=== PATIENT | male | born 1995 | race Caucasian/White ===

== ENCOUNTER 2024-07-06 09:13 | Inpatient (IN) | payer OTHER ==
[2024-07-06] MEDS ORDERED: Sodium Chloride 0.9% 10 ML Syringe FLUSH PRN (10:08)
[2024-07-06] MEDS: Sodium Chloride 0.9% 1,000 ML IV ONE ×2 (10:13→11:28)
[2024-07-06 10:24] LABS: BASOPHILS PERCENT AUTO 0.6 % (0.3-3.8); EOSINOPHILS ABSOLUTE AUTO 0.1 x10-3/uL (0.0-0.6); EOSINOPHILS PERCENT AUTO 1.4 % (0.1-6.8); HEMATOCRIT 38.6 % (38.3-50.1); HEMOGLOBIN 12.6 g/dL (12.9-17.7); LYMPHOCYTES ABSOLUTE AUTO 1.8 x10-3/uL (0.5-4.5); LYMPHOCYTES PERCENT AUTO 25.8 % (15.8-45.3); MEAN CORPUSCULAR HEMOGLOBIN 21.7 pg (27.0-33.3); MEAN CORPUSCULAR HGB CONC 32.6 g/dL (28.7-35.3); MEAN CORPUSCULAR VOLUME 66.6 fL (80.8-98.7); MEAN PLATELET VOLUME 7.7 fL (6.7-11.0); MONOCYTES ABSOLUTE AUTO 0.5 x10-3/uL (0.0-1.2); MONOCYTES PERCENT AUTO 6.7 % (5.5-15.2); NEUTROPHILS ABSOLUTE AUTO 4.6 x10-3/uL (1.7-6.9); NEUTROPHILS PERCENT AUTO 65.5 % (40.3-71.8); PLATELET COUNT,PLT 355 x10(3)uL (117-477); RED CELL DISTRIBUTION WIDTH 14.3 % (12.4-15.0); WHITE BLOOD CELL COUNT,WBC 7.1 x10-3/uL (3.2-10.1)
[2024-07-06 10:31] LABS: BASE EXCESS VENOUS,POC -10 mmol/L (-2 - 3+); PCO2 VENOUS,POC 34 mmHg (41-51); PH VENOUS,POC 7.28 pH Units (7.32-7.43)
[2024-07-06 10:36] LABS: A/G RATIO 1.3; ALANINE AMINOTRANSFERASE,ALT 50 U/L (12-36); ALBUMIN 4.7 g/dL (3.5-5.2); ALKALINE PHOSPHATASE 113 IU/L (56-112); ASPARTATE AMNIOTRANSFERASE,AST 9 IU/L (5-25); BILIRUBIN TOTAL 0.8 mg/dL (0.1-1.3); BLOOD UREA NITROGEN,BUN 16 mg/dL (7-18); BUN/CREATININE RATIO 12.3 (9-20); CALCIUM 9.4 mg/dL (8.6-10.2); CARBON DIOXIDE,CO2 17 mmol/L (21-32); CHLORIDE,CL 96 mmol/L (100-110); CREATININE 1.3 mg/dL (0.70-1.30); EST CRCL DRUG DOSING (CG) 83.91 mL/min; ESTIMATED GFR 77 mL/min (>60); POTASSIUM,K 3.9 mmol/L (3.5-5.3); PROTEIN TOTAL,TP 8.2 g/dL (6.0-8.0); SODIUM,NA 136 mmol/L (135-145)
[2024-07-06 10:37] LABS: GLUCOSE RANDOM 470 mg/dL (80-116)
[2024-07-06 11:06] LABS: BILIRUBIN,URINE NEGATIVE (NEGATIVE); GLUCOSE,URINE >1000 mg/dL (NORMAL); KETONES,URINE 150 mg/dL (NEGATIVE); LEUKOCYTE ESTERASE,URINE NEGATIVE (NEGATIVE); NITRITE,URINE NEGATIVE (NEGATIVE); OCCULT BLOOD,URINE NEGATIVE (NEGATIVE); PROTEIN,URINE NEGATIVE (NEGATIVE); UROBILINOGEN,URINE NORMAL (NEGATIVE)
[2024-07-06 11:07] LABS: APPEARANCE,URINE CLEAR (CLEAR); COLOR,URINE YELLOW (YELLOW)
[2024-07-06] MEDS ORDERED: Glucagon,Human Recombinant 1 MG Vial IM PRN ×5 (11:23→15:12)
[2024-07-06] MEDS ORDERED: 50% Dextrose in Water 50 ML Syringe IVPUSH PRN ×5 (11:23→15:12)
[2024-07-06] MEDS: Insulin Regular, Human 100 Units/ML 10 ML Vial IV ONE (11:29)
[2024-07-06] MEDS ORDERED: Polyethylene Glycol 3350 Powder 17 GM Packet PO PRN (11:54)
[2024-07-06] MEDS ORDERED: Ibuprofen 400 MG Tab PO PRN (11:54)
[2024-07-06] MEDS ORDERED: Ondansetron 4 MG Tab.DIS PO PRN (11:54)
[2024-07-06] MEDS ORDERED: Acetaminophen 325 MG Tab PO PRN (11:54)
[2024-07-06 12:37] LABS: HEMOGLOBIN A1C 11.4 % (<5.7)
[2024-07-06] MEDS: NS + KCl 20mEq/L 1,000 ML IV SCH (12:50)
[2024-07-06 13:16] LABS: BLOOD UREA NITROGEN,BUN 13 mg/dL (7-18); CALCIUM 8.7 mg/dL (8.6-10.2); CARBON DIOXIDE,CO2 22 mmol/L (21-32); CHLORIDE,CL 105 mmol/L (100-110); CREATININE 1.3 mg/dL (0.70-1.30); EST CRCL DRUG DOSING (CG) 83.91 mL/min; ESTIMATED GFR 77 mL/min (>60); GLUCOSE RANDOM 178 mg/dL (80-116); POTASSIUM,K 3.3 mmol/L (3.5-5.3); SODIUM,NA 143 mmol/L (135-145)
[2024-07-06] MEDS: Insulin Lispro 100 Unit/ML 3 ML KwikPen SUBCUT STA (13:41)
[2024-07-06] MEDS: Insulin Glargine,Human Rec. Analog 100 Units/ML 3 ML Pen SUBCUT SCH (13:42)
[2024-07-06] MEDS: Potassium Chloride 20 MEQ Tab.ER PO ONE (15:06)
[2024-07-06 17:27] LABS: BLOOD UREA NITROGEN,BUN 10 mg/dL (7-18); BUN/CREATININE RATIO 9.1 (9-20); CALCIUM 8.1 mg/dL (8.6-10.2); CARBON DIOXIDE,CO2 20 mmol/L (21-32); CHLORIDE,CL 103 mmol/L (100-110); CREATININE 1.1 mg/dL (0.70-1.30); EST CRCL DRUG DOSING (CG) 98.78 mL/min; ESTIMATED GFR 94 mL/min (>60); GLUCOSE RANDOM 250 mg/dL (80-116); POTASSIUM,K 3.6 mmol/L (3.5-5.3); SODIUM,NA 139 mmol/L (135-145)
[2024-07-06] MEDS: Insulin Lispro 100 Unit/ML 3 ML KwikPen SUBCUT SCH ×2 (18:40)
[2024-07-06 21:32] LABS: BLOOD UREA NITROGEN,BUN 9 mg/dL (7-18); BUN/CREATININE RATIO 8.2 (9-20); CARBON DIOXIDE,CO2 23 mmol/L (21-32); CHLORIDE,CL 103 mmol/L (100-110); CREATININE 1.1 mg/dL (0.70-1.30); EST CRCL DRUG DOSING (CG) 98.78 mL/min; ESTIMATED GFR 94 mL/min (>60); GLUCOSE RANDOM 352 mg/dL (80-116); POTASSIUM,K 3.7 mmol/L (3.5-5.3); SODIUM,NA 136 mmol/L (135-145)
[2024-07-07 07:15] LABS: BASOPHILS PERCENT AUTO 0.5 % (0.3-3.8); EOSINOPHILS ABSOLUTE AUTO 0.3 x10-3/uL (0.0-0.6); EOSINOPHILS PERCENT AUTO 3.7 % (0.1-6.8); HEMATOCRIT 30.6 % (38.3-50.1); HEMOGLOBIN 10.2 g/dL (12.9-17.7); LYMPHOCYTES ABSOLUTE AUTO 2.4 x10-3/uL (0.5-4.5); LYMPHOCYTES PERCENT AUTO 35.4 % (15.8-45.3); MEAN CORPUSCULAR HEMOGLOBIN 22.1 pg (27.0-33.3); MEAN CORPUSCULAR HGB CONC 33.4 g/dL (28.7-35.3); MEAN CORPUSCULAR VOLUME 66.3 fL (80.8-98.7); MEAN PLATELET VOLUME 7.4 fL (6.7-11.0); MONOCYTES ABSOLUTE AUTO 0.4 x10-3/uL (0.0-1.2); MONOCYTES PERCENT AUTO 6.4 % (5.5-15.2); NEUTROPHILS ABSOLUTE AUTO 3.7 x10-3/uL (1.7-6.9); PLATELET COUNT,PLT 276 x10(3)uL (117-477); RED CELL DISTRIBUTION WIDTH 14.2 % (12.4-15.0); WHITE BLOOD CELL COUNT,WBC 6.9 x10-3/uL (3.2-10.1)
[2024-07-07 07:43] LABS: RED BLOOD CELL COUNT 4.61 x10(6)uL (3.90-5.90)
[2024-07-07 07:57] LABS: A/G RATIO 1.4; ALANINE AMINOTRANSFERASE,ALT 32 U/L (12-36); ALBUMIN 3.1 g/dL (3.5-5.2); ALKALINE PHOSPHATASE 68 IU/L (56-112); ASPARTATE AMNIOTRANSFERASE,AST 14 IU/L (5-25); BILIRUBIN TOTAL 0.8 mg/dL (0.1-1.3); BLOOD UREA NITROGEN,BUN 7 mg/dL (7-18); CALCIUM 7.9 mg/dL (8.6-10.2); CARBON DIOXIDE,CO2 24 mmol/L (21-32); CHLORIDE,CL 104 mmol/L (100-110); EST CRCL DRUG DOSING (CG) 108.66 mL/min; ESTIMATED GFR 105 mL/min (>60); GLUCOSE RANDOM 227 mg/dL (80-116); POTASSIUM,K 3.5 mmol/L (3.5-5.3); PROTEIN TOTAL,TP 5.4 g/dL (6.0-8.0); SODIUM,NA 138 mmol/L (135-145)
[2024-07-07] MEDS: Insulin Glargine,Human Rec. Analog 100 Units/ML 3 ML Pen SUBCUT SCH (08:50)
[2024-07-07 22:21] LABS: SERUM, C-PEPTIDE 0.4 ng/mL (0.5-3.3)
[2024-07-08 15:32] LABS: GLUTAMIC ACID DECARBOXYLASE AB >250.0 IU/mL (0.0-5.0)
== END 2024-07-07 13:12 | disposition home or self-care (01) | DRG 638 ==
LOC: FB.ED 09:13 → FB.MS 11:29 → UNDOADMIN 11:29 → FB.MS 11:29 → OBSVTOIN 11:29
PROVIDERS: ADMIT Family Medicine; ATTEND Family Medicine
DX: E10.10 Type 1 diabetes mellitus with ketoacidosis without coma (principal); N17.9 Acute kidney failure, unspecified; F12.90 Cannabis use, unspecified, uncomplicated; R63.1 Polydipsia; R35.0 Frequency of micturition; E86.0 Dehydration; Z79.4 Long term (current) use of insulin; Z87.891 Personal history of nicotine dependence
CPT/HCPCS: 36415; 80048; 80053; 81003; 82010; 82947; 83036; 83605; 83735; 84681; 85025; 86140; 86341; 94150; 99223; 99238; A9270-GY; J1815; J1815-GY; J3480; J7030